=== PATIENT | female | born 1960 | race Caucasian/White ===

== ENCOUNTER → 2016-07-27 | Outpatient (CLI) | payer BC ==
[2014-12-10 11:00] VITALS: BP 150/107
[~2016-07-27] MED LIST: ALPR0.5T6 PO; ALPR1TAB6 PO; AMIT1TAB PO; ATOR40TA59 PO; BUPR100T6 PO; CITA40TA5 PO; FLUO40CA9 PO; LEVO88TA4 PO; METO25TA2 PO; ZALE10CA PO
--- NOTE | 2016-07-27 16:52 | RAD ---
EXAM: ABDOMINAL ULTRASOUND. HISTORY: Epigastric pain. COMPARISON: None. FINDINGS: Sonographic evaluation of the abdomen was performed. Hyperechogenicity of the hepatic parenchyma is consistent with diffuse hepatic steatosis. This lowers sensitivity for focal lesions. None are seen. The spleen measures cm. Gallstones are noted. There is no pericholecystic fluid or wall thickening. There is no sonographic Mckeon sign. The common duct measures 3 mm. The visualized portions of the head and body of the pancreas reveal no abnormality. The right kidney measures 10.0 cm. Cortical thickness and echogenicity are preserved. There is no hydronephrosis. The left kidney measures 10.9 cm. Cortical thickness and echogenicity are preserved. There is no hydronephrosis. The visualized portions of the abdominal aorta and inferior vena cava are grossly patent and normal in caliber. IMPRESSION: 1. Mild diffuse hepatic steatosis. 2. Cholelithiasis without sonographic evidence of acute cholecystitis.
== END | disposition home or self-care (01) ==
LOC: US 16:15
PROVIDERS: ATTEND Family Medicine
DX: R10.13 Epigastric pain (principal); K76.0 Fatty (change of) liver, not elsewhere classified
CPT/HCPCS: 76700

== ENCOUNTER 2016-08-18 09:47 | Day surgery (SDC) | payer BC ==
[~2016-08-18] VITALS: Ht 157.5 cm; Wt 84.4 kg
[~2016-08-18 09:47] MED LIST changes: +BUPIVAC MPF-EPI 0.5%-1:200000 30 ML VIAL. ONE; +BYSTOLIC5 MG PO; +CEFAZOLIN 2GM PREMIX 50 ML IV PRN; +DIAZEPAM10 MG PO; +DICL100G7 TP; +FENTANYL PF 100 MCG/2 ML VIAL. IV PRN; +IOHEXOL 300 MG/ML 50 ML VIAL. ONE; +IV RINGERS,LACTATED 1000ML 1,000 ML IV SCH; +LAMO25TA PO; +LIDOCAINE 1% 1 ML SYRINGE. ID PRN; +ONDANSETRON PF 4 MG/2 ML VIAL. IV PRN; +OXYC5TAB PO; +PROCHLORPERAZINE 10 MG/2 ML VIAL. IV PRN; +SURGICEL HEMOSTAT 4X8 EACH. ONE; +VENL150C PO
[2016-08-18] MEDS ORDERED: GLYCOPYRROLATE 1 MG/5 ML VIAL. ONE (10:14)
[2016-08-18] MEDS ORDERED: NEOSTIGMINE METHYLSULFATE 5 MG/5 ML SYRINGE. ONE (10:14)
[2016-08-18] MEDS ORDERED: ROCURONIUM 50 MG/5 ML VIAL. ONE (10:14)
[2016-08-18] MEDS ORDERED: SEVOFLURANE 61 TO 120 MINUTES. IH ONE ×2 (10:14→12:28)
[2016-08-18] MEDS ORDERED: FENTANYL PF 100 MCG/2 ML VIAL. ONE (10:14)
[2016-08-18] MEDS ORDERED: MIDAZOLAM HCL 2 MG/2 ML VIAL. ONE (10:14)
[2016-08-18] MEDS ORDERED: ONDANSETRON PF 4 MG/2 ML VIAL. ONE (10:15)
[2016-08-18] MEDS ORDERED: PROPOFOL 20 ML IV ONE (10:15)
[2016-08-18] MEDS ORDERED: LIDOCAINE 2% 100 MG/5 ML DISP.SYRIN. ONE (10:15)
[2016-08-18] MEDS ORDERED: DEXAMETHASONE SOD PHOS 20 MG/5 ML VIAL. ONE (10:15)
[2016-08-18] MEDS ORDERED: KETOROLAC 30 MG/ML SYRINGE FOR OR. INJ ONE (10:18)
[2016-08-18] MEDS ORDERED: SURGICEL HEMOSTAT 4X8 EACH. ONE (11:13)
[2016-08-18] MEDS ORDERED: IOHEXOL 300 MG/ML 50 ML VIAL. ONE (11:14)
[2016-08-18] MEDS ORDERED: BUPIVAC MPF-EPI 0.5%-1:200000 30 ML VIAL. ONE (11:14)
[2016-08-18] MEDS ORDERED: EPHEDRINE SULFATE 50 MG/ML VIAL. ONE (11:58)
--- NOTE | 2016-08-18 12:18 | RAD ---
Intraoperative cholangiogram, 2 views, 08/18/2016: History: Cholecystectomy Contrast has been injected into the cystic duct remnant. 0.1 minutes of fluoroscopy time was utilized. There is good flow of contrast into the duodenum at the ampulla. No filling defect is seen in the common duct to suggest a retained stone. There is reflux of contrast into a portion of the distal pancreatic duct. The incompletely visualized intrahepatic ducts are unremarkable. No contrast extravasation is seen. IMPRESSION: No significant abnormality is detected.
[2016-08-18] MEDS ORDERED: OXYC-323 PO (12:32)
[2016-08-18] MEDS ORDERED: ONDA4TAB7 PO (12:32)
--- NOTE | 2016-08-18 12:34 | PDOC ---
BRIEF OPERATIVE NOTE Pre-Op Diagnosis cholelithiasis lap ora, ioc k joselin caballero ebl 10 ivf 1000 eugene well to rr stable. LAURE BOYD MD Aug 18, 2016 12:34
[2016-08-18] MEDS ORDERED: METOCLOPRAMIDE HCL 10 MG/2 ML VIAL. ONE (12:35)
[2016-08-18] MEDS: FENTANYL PF 100 MCG/2 ML VIAL. IV PRN ×3 (12:52→13:10)
[2016-08-18] MEDS: MORPHINE SULFATE 2 MG/ML DISP.SYRIN. IV PRN ×2 (13:50→14:00)
[2016-08-18] MEDS ORDERED: OXYCODONE/APAP 5/325 TABLET. PO ONE (14:00)
[2016-08-18 14:19] VITALS: BP 122/57
--- NOTE | 2016-08-19 14:40 | PATHOLOGY ---
PATHOLOGY REPORT * * * * * * * * FINAL DIAGNOSIS: Gallbladder, laparoscopic cholecystectomy: - Cholelithiasis. - Chronic cholecystitis. COMMENT: There is no evidence of malignancy. (GINAM:; d/t: 08/19/16) REPORT ELECTRONICALLY SIGNED BY: Thaddeus Yancey M.D. DATE/TIME: 08/19/2016 14:39 * * * * * * * * GROSS PATHOLOGY: Received in formalin labeled "Kia Gomez, gallbladder and contents," is an 11.2 x 3.7 x 3.0 cm, intact gallbladder with pink-rivas to purple serosal surfaces. Opening the gallbladder reveals a velvety, bile-stained mucosa and an average wall thickness of 0.1 cm. Calculi are present displaying a bright yellow and nodular appearance, and no masses are noted grossly. Manufacturing [employer] Titles sections from the body and fundus are submitted along with the proximal margin in cassette A1. (CAA; 08/18/2016) INITIAL CPT CODE(S): A; 34887 Professional services performed by [facility] [place] [address] Technical services performed by [facility] at [address] [place] [address] [address] [address]. SPECIMEN(S) RECEIVED: A.Gallbladder and contents CLINICAL HISTORY: Cholelithiasis PATIENT: KIA GOMEZ /AGE: 801/26/1960 (Age: 56) PATIENT #: [id number] ALT CASE #: SPECIMEN COLLECTION DATE: 08/18/2016 SPECIMEN RECEIVED DATE: 08/18/2016 [facility] - [address] [place] [address] - PHONE: [phone] * * * END OF REPORT * * *
--- NOTE | 2016-08-19 21:04 | OP ---
DATE OF SURGERY: 08/18/2016 PREOPERATIVE DIAGNOSIS: Symptomatic cholelithiasis. POSTOPERATIVE DIAGNOSIS: Symptomatic cholelithiasis. PROCEDURE: Laparoscopic cholecystectomy with intraoperative cholangiogram. SURGEON: Laure Boyd M.D. ANESTHESIA: General. ESTIMATED BLOOD LOSS: 10 mL. IV FLUIDS: 1000 mL. INDICATIONS: The patient is a 56-year-old female with symptomatic cholelithiasis. DESCRIPTION OF PROCEDURE: After informed consent was obtained, the patient was taken to the operating room and placed in the supine position. After adequate induction of general anesthesia, she was prepped and draped in the usual sterile fashion. An umbilical skin incision was made with a scalpel, and subcutaneous tissue was spread with a hemostat. [facility] was used to grab the fascia and lift it anteriorly. Veress was used to gain access to the peritoneal cavity. Low opening pressures confirmed intraperitoneal placement of Veress. Pneumoperitoneum to 15 mmHg was established followed by placement of 5 mm port. A 5 mm 30 degree lens was inserted, which revealed good port placement. No evidence of entry trauma. She was placed head up, rotated towards her left. Three additional ports were placed under direct vision, one was an epigastric 12 mm port and two were 5 mm right lateral ports. The patient had had some right lower quadrant pain and bulging that she was concerned may be an incisional hernia. She has had a previous paramedian lower abdominal incision for appendectomy. This area was inspected laparoscopically. The fascia appeared intact. There was no evidence of adhesive disease to the anterior abdominal wall and there was no evidence of an incisional hernia. At this point, cholecystectomy was performed. The gallbladder was grasped fundus, lifted over the liver and slightly towards the right. The infundibulum was retracted towards the right and towards her toes to open triangle of Calot. The leading peritoneal edge was scored with cautery medially and laterally and carried back towards the liver. [place] dissector was used to dissect out the triangle of Calot. At the completion of the dissection, two structures were seen leading directly to the gallbladder, one was a cystic artery, one was a cystic duct. The liver could be seen behind the gallbladder. The gallbladder dissected away from the cystic plate. Two clips were placed on the cystic artery proximally, one distally and the artery divided sharply. A clip was placed in the cystic duct adjacent to the gallbladder. Ductotomy was made with scissors. Intraoperative cholangiogram showed free flow of contrast. The cystic duct, common bile duct, common hepatic duct, left and right hepatic duct, intrahepatic radicles, free flow of contrast into the duodenum with no filling defects. The cholangiogram was interpreted as normal and completed. The catheter was removed. Three clips were placed on the cystic duct, distal ductotomy. Ductotomy completed with scissors. Gallbladder was removed from the bed of the liver with cautery. It was placed in a laparoscopic bag and brought out through the epigastric incision. Right upper quadrant was irrigated. The irrigant returned clear. There was no bleeding or bile leakage noted. Fascial closure device was used to close the fascia at the epigastric incision using 0 Vicryl suture. The ports were removed under direct vision. They were hemostatic. Pneumoperitoneum was desufflated. Skin incisions were closed with 4-0 Monocryl in subcuticular fashion. Sterile dressings were placed. She tolerated the procedure well. There were no apparent complications. She was transferred in stable condition to the recovery room. LAURE BOYD MD DR: EVELYN/yandel JOB#: [id number] / [id number] DIANNE Gale MD
== END 2016-08-18 14:30 | disposition home or self-care (01) ==
LOC: SURG 09:47
PROVIDERS: ATTEND Surgery
DX: K80.10 Calculus of gallbladder with chronic cholecystitis without obstruction (principal); R56.9 Unspecified convulsions; E78.00 Pure hypercholesterolemia, unspecified; I10 Essential (primary) hypertension; K21.9 Gastro-esophageal reflux disease without esophagitis; M81.0 Age-related osteoporosis without current pathological fracture; E03.9 Hypothyroidism, unspecified; F41.0 Panic disorder [episodic paroxysmal anxiety]; F41.9 Anxiety disorder, unspecified; F32.9 Major depressive disorder, single episode, unspecified; F10.99 Alcohol use, unspecified with unspecified alcohol-induced disorder; F17.200 Nicotine dependence, unspecified, uncomplicated; Z90.49 Acquired absence of other specified parts of digestive tract; Z98.51 Tubal ligation status; Z90.710 Acquired absence of both cervix and uterus; Z90.721 Acquired absence of ovaries, unilateral
CPT/HCPCS: 47563; 74300; C1782; J0690; J0780; J1100; J1885; J2250; J2270; J2405; J2704; J2710; J2765; J3010; J3490; J7030; J7120; Q9967; 88304; J2001

== ENCOUNTER → 2017-03-29 | Outpatient (CLI) | payer BC ==
[~2017-03-29] MED LIST changes: -BUPIVAC MPF-EPI 0.5%-1:200000 30 ML VIAL. ONE; -CEFAZOLIN 2GM PREMIX 50 ML IV PRN; +CYCL10TA2 PO; +DICL100G18 TP; -DICL100G7 TP; +ESZO3TAB28 PO; -FENTANYL PF 100 MCG/2 ML VIAL. IV PRN; +IOHEXOL 180 MG/ML 10 ML VIAL. ONE; -IOHEXOL 300 MG/ML 50 ML VIAL. ONE; -IV RINGERS,LACTATED 1000ML 1,000 ML IV SCH; +LAMO25TA5 PO; +LEVO25TA4 PO; -LIDOCAINE 1% 1 ML SYRINGE. ID PRN; +ONDA4TAB7 PO; -ONDANSETRON PF 4 MG/2 ML VIAL. IV PRN; +OXYC-323 PO; -OXYC5TAB PO; +OXYC5TAB95 PO; -PROCHLORPERAZINE 10 MG/2 ML VIAL. IV PRN; -SURGICEL HEMOSTAT 4X8 EACH. ONE; +VENL225T PO; +methylPREDNISolone ACETATE 40 MG/ML VIAL. ONE; +methylPREDNISolone ACETATE 80 MG/ML VIAL. ONE
--- NOTE | 2017-03-29 18:52 | PAIN ---
DATE OF SERVICE: 03/29/2017 INITIAL CONSULTATION FOR PAIN CLINIC CHIEF COMPLAINT: Low back and left lower extremity pain. HISTORY OF PRESENT ILLNESS: This is a 57-year-old female who presents with history of pain in the low back and left lower extremity for about 5 months or so. Now, the patient reports it increased without any specific injury or action that she is aware of, but gradually getting worse. She reports she has fallen a few times during this summer because her left leg was feeling weak and she reports pain radiating from the low back in the left posterior gluteus, posterior lateral thigh, posterior calf into the foot causing her to stumble when it is at its worst. The patient reports it is throbbing, sometimes stabbing, radiating, intermittent in intensity and aching. Reports it awakens her from sleep about once or twice a night if she lays on the left side, also has some difficulty with walking. No loss of bowel incontinence, but the patient reports it is hard to start when she is urinating, which is worse when the pain is at its worst. The patient reports no loss of bowel function. The patient did have an MRI scan of the lumbar spine showing a broad-based disk bulge at L5-S1 extending into the spinal canal approximately 2.5 mm with bilateral facet degenerative changes and spinal lipomatosis also noted. The patient noted thecal sac circumferentially with neural foraminal stenosis on the left with patency on the right. L4-L5 shows broad based annular bulge effacing the thecal sac approximately 1 mm, but without significant stenosis at that level. The patient reports worse with walking, standing, change in positions, better with lying down, but again lying on the left side is waking her from sleep frequently. She has tried some chiropractic treatment, which helped in early 2014, but not had any since and has been doing some stretching on her own and walking daily, but it is beginning to inhibit her ability to walk because of the pain. The patient reports she has tried Flexeril, which helped to some extent and Aleve helps better than Tylenol, she has tried both. PAST MEDICAL HISTORY: Significant for hypertension, difficulty urinating, arthritis, cataracts, cigarette smoking half pack a day for the past 40 years, continues to smoke. PREVIOUS SURGERIES: Include hysterectomy, tubal ligation, cholecystectomy, appendectomy and tonsillectomy. The patient rates her disability rating from 0 to 10, 10 being the worst, is an 8 with family and home responsibilities, recreation and social activity, 10 with occupation, 6 with sexual behavior, 5 with self care and 2 with life support activities. CURRENT MEDICATIONS: Include diazepam, Bystolic, venlafaxine, Lunesta, cyclobenzaprine, Lamictal and levothyroxine. ALLERGIES: THE PATIENT IS ALLERGIC TO CODEINE. FAMILY HISTORY: Significant for no major medical problems or conditions that she is aware of. SOCIAL HISTORY: The patient continues to smoke about half a pack of cigarettes per day and has for the past 40 years. Does not drink alcohol, use any other illegal illicit drugs or other substances and lives locally in [place], [place]. REVIEW OF SYSTEMS: The patient's review of systems is positive for those items mentioned in history of present illness. All systems reviewed and otherwise negative. It is complete, full and well documented on the patient's chart. PHYSICAL EXAMINATION: VITAL SIGNS: Today, the patient's blood pressure is 141/87, pulse 75, respirations 18, temperature 98.2 degrees Fahrenheit, height is 5 feet 2 inches, weight is 186 pounds. GENERAL: The patient is awake, alert, oriented, appropriate, very pleasant demeanor. HEENT: Head shows normocephalic, atraumatic. Extraocular movements are intact and symmetrical. Oral cavity, mucous membranes are moist and pink. Dentition is intact. NECK: Shows anterior throat supple without palpable lymphadenopathy noted. Swallow reflex is symmetrical. CHEST: Shows normal on inspection. Breath sounds are clear to auscultation bilaterally. HEART: Shows S1 and S2 clear. No murmurs auscultated. ABDOMEN: Soft, nontender, nondistended. No palpable organomegaly. There is no rebound or guarding demonstrated. BACK: Shows spine grossly in the midline. No previous bruises, lesions, rashes or scars are noted. Normal appearing cervical lordotic curvature, thoracic kyphotic curvature, and lumbar lordotic curvature. Lumbar paraspinous muscle shows symmetrical on inspection, with palpation shows only some very mild tenderness with palpation in the lower lumbar distribution of the left side only. Right side is nontender with palpation. No radiation of pain. No trigger points. No tenderness over the spinous processes, sacrum or sacroiliac regions with palpation. The patient shows good rotational motion both laterally, greater than 10 degrees right and left as well as extension greater than 10 degrees, forward flexion at 45 degrees without significant pain reported. EXTREMITIES: Lower extremities show deep tendon reflexes 2+ in the patellar, 1+ tendo-calcaneus tendons, are equal. Motor exam is approximately 4 on a scale of 5 with left dorsiflexion, extension, quadriceps and hamstring flexion is 5/5 on the right, slightly stronger on the right side. Peripheral pulses are 1+ posterior tibial and dorsalis pedis pulses. No peripheral edema is noted. No clubbing, no cyanosis. Lower extremities are warm and dry to touch, equal in color and appearance. The patient is able to stand, stand on her toes without difficulty or loss of balance, is walking with a normal-appearing gait, does not appear to favor the right or left lower extremity significantly with a short walk, not use any assistive devices to ambulate as well. IMPRESSION: 1. This is a 57-year-old female with approximate 5-month history of increasing pain in low back and left lower extremity in a radicular fashion. 2. MRI scan of lumbar spine as noted. 3. Hypertension. 4. Cigarette smoking. 5. Arthritis. PLAN: Options were discussed with the patient including conservative medical management, physical therapy and interventional techniques. She would like to pursue interventional techniques. We discussed a lumbar epidural steroid injection using description as well as anatomical models to describe the procedure. Risks were then discussed including, but not limited to bleeding, infection, possibility of epidural hematoma, subsequent neurologic compromise, dural puncture, headaches, spinal cord and/or nerve damage, side effects of steroid medication and poor results regarding pain control. The patient understands and wishes to proceed. The patient will return to clinic in approximately 2 weeks for followup, was counseled on return appointment, activity level and side effects to be aware of. DIAGNOSES: Lumbar radiculopathy with lumbar spinal stenosis and lumbar degenerative disk disease. PROCEDURE: Lumbar epidural steroid injection in translaminar approach at the L5-S1 level using C-arm fluoroscopic guidance under sterile prep and drape using local anesthetic. MEDICATIONS INJECTED: A total of 120 mg Depo-Medrol plus 10 mL of preservative-free normal saline, 2 mL Isovue for contrast. CONDITION AT DISCHARGE: Stable. The patient tolerated procedure well, had no complications. LAMBERTO CUTLER MD DR: BERNARD/yadnel JOB#: [id number] / [id number] DIANNE Gale MD
== END | disposition home or self-care (01) ==
LOC: PNCL 10:04
PROVIDERS: ATTEND Anesthesiology
DX: M51.16 Intervertebral disc disorders with radiculopathy, lumbar region (principal); M48.061 Spinal stenosis, lumbar region without neurogenic claudication; I10 Essential (primary) hypertension; F17.200 Nicotine dependence, unspecified, uncomplicated; M19.91 Primary osteoarthritis, unspecified site; E78.00 Pure hypercholesterolemia, unspecified; E03.9 Hypothyroidism, unspecified; F41.9 Anxiety disorder, unspecified; F32.9 Major depressive disorder, single episode, unspecified; Z72.89 Other problems related to lifestyle; Z86.69 Personal history of other diseases of the nervous system and sense organs; Z98.890 Other specified postprocedural states; Z98.51 Tubal ligation status; Z90.710 Acquired absence of both cervix and uterus; Z87.39 Personal history of other diseases of the musculoskeletal system and connective tissue; Z87.440 Personal history of urinary (tract) infections; Z88.6 Allergy status to analgesic agent
CPT/HCPCS: 62323; J1030; J1040

== ENCOUNTER → 2017-05-03 | Outpatient (CLI) | payer BC ==
[~2017-05-03] MED LIST changes: +VENL150T PO
--- NOTE | 2017-05-04 02:40 | PAIN ---
DATE OF SERVICE: 05/03/2017 DIAGNOSES: Lumbar radiculopathy with lumbar degenerative disk disease, lumbar spinal stenosis. HISTORY OF PRESENT ILLNESS: The patient is a 57-year-old female, who returns for followup status post lumbar epidural steroid injection x 1. The patient reports about 80% improvement initially and now only about 20% improvement. Over the last week or two, the pain is beginning to return in her low back and left lower extremity, radiating to the posterior gluteus, posterior thigh, posterior calf into the foot on the left side only. The patient reports aching, cramping and becoming more constant and somewhat dull and unbearable. The patient reports it is 8 on a scale of 10 is worse, 7 on average, 5 on a scale of 10 is the least and is a 5 today. The patient reports no new motor or sensory deficits, no new bowel or bladder incontinence or other complaints. The patient reports worse with standing, walking, change in positions, better with sitting or lying down, awakens her from sleep occasionally, but she usually sleeps about 7 hours at a time. She ____ reposition and get back to sleep without difficulty. PHYSICAL EXAMINATION: VITAL SIGNS: Today, the patient's blood pressure is 113/66, pulse 64, respirations are 18, temperature 97.7 degrees Fahrenheit. Height 5 feet 2 inches, weighs 189 pounds. GENERAL: The patient is awake, alert, oriented, appropriate, very pleasant demeanor. HEENT: Head shows normocephalic, atraumatic. Extraocular movements are intact, symmetrical. Oral cavity: Mucous membranes moist and pink. Dentition is intact. NECK: Shows anterior throat supple without palpable lymphadenopathy noted. Swallow reflex is symmetrical. CHEST: Shows normal with inspection. Breath sounds clear to auscultation bilaterally. HEART: Shows S1, S2 clear. ABDOMEN: Soft, nontender, nondistended. No palpable organomegaly. No rebound or guarding demonstrated. BACK: Shows spine grossly midline. Lumbar paraspinous muscle shows symmetrical on inspection with palpation shows some moderate tenderness in the middle and lower distribution of paraspinous muscles, but without radiation. The patient has good rotational motion both laterally as well as extension and flexion of lumbar spine without significant pain reported. EXTREMITIES: Lower extremities show deep tendon reflexes 2+ in the patellar, 1+ tendo-calcaneus tendons are equal. Motor exam is approximately 4 on a scale 5 with left dorsiflexion, extension, 5/5 on the right. Peripheral pulses are 1+ posterior tibial. No peripheral edema is noted bilaterally. Options were discussed with the patient. The patient's old chart was reviewed as her current medication regimen updated. Current review of systems updated today as well. We will proceed with a lumbar epidural steroid injection, the second in this series with fluoroscopic guidance. Risks were again discussed including, but not limited to bleeding, infection, possibility of epidural hematoma, subsequent neurologic compromise, dural puncture, headaches, spinal cord and/or nerve damage, side effects of steroid medication and poor results regarding pain control. The patient understands and wished to proceed. The patient will return to clinic in approximately 2 weeks for followup. She was counseled to return appointment, activity level and side effects to be aware of. DIAGNOSIS: Lumbar radiculopathy with lumbar degenerative disk disease, lumbar spinal stenosis. PROCEDURE: Lumbar epidural steroid injection, translaminar approach at the L5-S1 level using C-arm fluoroscopic guidance under sterile prep and drape using local anesthetic. Medications injected a total of 120 mg Depo-Medrol plus 10 mL of preservative-free normal saline and 2 mL of Isovue for contrast. CONDITION AT DISCHARGE: Stable. The patient tolerated procedure well, had no complications. LAMBERTO CUTLER MD DR: BERNARD/yandel JOB#: [id number] / [id number]
== END ==
LOC: PNCL 08:15
PROVIDERS: ATTEND Anesthesiology
DX: M51.16 Intervertebral disc disorders with radiculopathy, lumbar region (principal); M48.061 Spinal stenosis, lumbar region without neurogenic claudication; E78.00 Pure hypercholesterolemia, unspecified; I10 Essential (primary) hypertension; K21.9 Gastro-esophageal reflux disease without esophagitis; M81.0 Age-related osteoporosis without current pathological fracture; E03.9 Hypothyroidism, unspecified; F32.9 Major depressive disorder, single episode, unspecified; F41.9 Anxiety disorder, unspecified; F17.200 Nicotine dependence, unspecified, uncomplicated; Z82.49 Family history of ischemic heart disease and other diseases of the circulatory system; Z98.51 Tubal ligation status; Z90.710 Acquired absence of both cervix and uterus; Z90.721 Acquired absence of ovaries, unilateral; Z87.440 Personal history of urinary (tract) infections; Z98.890 Other specified postprocedural states
CPT/HCPCS: 62323; J1030; J1040

== ENCOUNTER → 2017-11-22 | Outpatient (CLI) | payer BC ==
[~2017-11-22] MED LIST changes: -ALPR0.5T6 PO; -ALPR1TAB6 PO; -AMIT1TAB PO; -ATOR40TA59 PO; -BUPR100T6 PO; -BYSTOLIC5 MG PO; -CITA40TA5 PO; -CYCL10TA2 PO; -DIAZEPAM10 MG PO; -DICL100G18 TP; -ESZO3TAB28 PO; -FLUO40CA9 PO; +IOHEXOL 180 MG/ML 10 ML VIAL.; -IOHEXOL 180 MG/ML 10 ML VIAL. ONE; -LAMO25TA PO; -LAMO25TA5 PO; -LEVO25TA4 PO; -LEVO88TA4 PO; +LIDOCAINE 1% PF 2 ML VIAL.; -METO25TA2 PO; -ONDA4TAB7 PO; -OXYC-323 PO; -OXYC5TAB95 PO; -VENL150C PO; -VENL150T PO; -VENL225T PO; -ZALE10CA PO; +methylPREDNISolone ACETATE 40 MG/ML VIAL.; -methylPREDNISolone ACETATE 40 MG/ML VIAL. ONE; +methylPREDNISolone ACETATE 80 MG/ML VIAL.; -methylPREDNISolone ACETATE 80 MG/ML VIAL. ONE
== END | disposition home or self-care (01) ==
LOC: PNCL 14:10
DX: M51.16 Intervertebral disc disorders with radiculopathy, lumbar region (principal); M48.061 Spinal stenosis, lumbar region without neurogenic claudication; E78.00 Pure hypercholesterolemia, unspecified; I10 Essential (primary) hypertension; K21.9 Gastro-esophageal reflux disease without esophagitis; N39.0 Urinary tract infection, site not specified; M81.0 Age-related osteoporosis without current pathological fracture; F41.0 Panic disorder [episodic paroxysmal anxiety]; F32.9 Major depressive disorder, single episode, unspecified; F17.210 Nicotine dependence, cigarettes, uncomplicated; Z88.5 Allergy status to narcotic agent; Z90.49 Acquired absence of other specified parts of digestive tract; Z98.51 Tubal ligation status; Z90.710 Acquired absence of both cervix and uterus; Z90.721 Acquired absence of ovaries, unilateral
CPT/HCPCS: 62323; J1030; J1040; Q9965

== ENCOUNTER 2018-01-22 05:40 | Emergency (ER) | payer BC ==
[~2018-01-22] VITALS: Ht 157.5 cm; Wt 77.1 kg
[~2018-01-22 05:40] MED LIST changes: +ALPR0.5T6 PO; +ALPR1TAB6 PO; +AMIT1TAB PO; +ARIP5TAB13 PO; +ATOR40TA59 PO; +BUPR100T6 PO; +BYSTOLIC5 MG PO; +CITA40TA5 PO; +CYCL10TA2 PO; +DIAZEPAM10 MG PO; +DICL100G18 TP; +ESZO3TAB28 PO; +FLUO40CA9 PO; -IOHEXOL 180 MG/ML 10 ML VIAL.; +LAMO25TA PO; +LAMO25TA5 PO; +LEVO25TA4 PO; +LEVO88TA4 PO; -LIDOCAINE 1% PF 2 ML VIAL.; +METO25TA2 PO; +ONDA4TAB7 PO; +OXYC-323 PO; +OXYC5TAB95 PO; +VENL150C PO; +VENL150T PO; +VENL225T PO; +ZALE10CA PO; -methylPREDNISolone ACETATE 40 MG/ML VIAL.; -methylPREDNISolone ACETATE 80 MG/ML VIAL.
--- NOTE | 2018-01-22 06:05 | PHYS DOC ---
Past Medical History Past Medical History: Anxiety, Depression, Hypertension, Other Additional Past Medical Histor: panic attacks Past Surgical History: Cholecystectomy Alcohol Use: Rarely Drug Use: None Adult General Chief Complaint Chief Complaint: ABDOMINAL PAIN HPI HPI Patient is a 57 year old female who presents with abdominal pain. Patient c/o LLQ pain over the last 3 days. Pain has been constant and worsening. Patient is one year s/p cholecystectomy. She also had appendectomy as a child. No fever or chills. + nausea but no emesis. She does report some difficulty with having bowel movements with last normal BM being four days earlier. She has had some "pebble" like stools but no large BMs. No diarrhea. Denies urinary symptoms. Review of Systems Review of Systems Constitutional: Denies fever Eyes: Denies change in visual acuity HENT: Denies nasal congestion Respiratory: Denies cough or shortness of breath Cardiovascular: No additional information GI: Denies abdominal pain, nausea, vomiting : Denies dysuria or hematuria Musculoskeletal: Denies back pain Integument: Denies rash or skin lesions Neurologic: Denies headache Endocrine: Denies polyuria All other systems were reviewed and found to be within normal limits, except as documented in this note. Current Medications Current Medications Current Medications Medications (Trade) Dose Ordered Sig/Lit Start Time Stop Time Status Last Admin Dose Admin Info (CONTRAST GIVEN -- Rx MONITORING) 1 each PRN DAILY PRN 01/22/18 06:15 01/24/18 06:14 Iohexol (Omnipaque 300 Mg/ml) 75 ml 1X ONCE 01/22/18 06:30 01/22/18 06:31 DC Morphine Sulfate (Morphine Sulfate) 6 mg 1X ONCE 01/22/18 06:30 01/22/18 06:31 DC 01/22/18 06:22 6 MG Ondansetron HCl (Zofran) 4 mg 1X ONCE 01/22/18 06:30 01/22/18 06:31 DC 01/22/18 06:23 4 MG Sodium Chloride 1,000 ml @ 1,000 mls/hr 1X ONCE 01/22/18 07:00 01/22/18 07:59 DC 01/22/18 07:09 1,000 MLS/HR Allergies Allergies Allergies Coded Allergies Type Severity Reaction Last Updated Verified codeine Allergy Intermediate Rash 03/29/17 Yes Physical Exam Physical Exam Constitutional: Well developed, well nourished, no acute distress, non-toxic appearance HENT: Normocephalic, atraumatic, bilateral external ears normal, oropharynx moist Eyes: PERRLA, EOMI, conjunctiva normal Neck: Normal range of motion Cardiovascular:Heart rate regular rhythm, no murmur Lungs & Thorax: Bilateral breath sounds clear to auscultation Abdomen: Bowel sounds normal, soft, mildly TTP over LLQ but no guarding or rebound Skin: Warm, dry, no erythema Extremities: No edema Neurologic: Alert and oriented X 3 Psychologic: Affect normal Current Patient Data Vital Signs Vital Signs Date Time Temp Pulse Resp B/P (MAP) Pulse Ox O2 Delivery O2 Flow Rate FiO2 01/22/18 07:00 66 18 157/105 (122) 96 Room Air 01/22/18 05:50 98.2 98.2 Lab Values Laboratory Tests Test 01/22/18 05:55 01/22/18 07:55 White Blood Count 8.9 x10^3/uL (4.0-11.0) Red Blood Count 4.89 x10^6/uL (3.50-5.40) Hemoglobin 15.7 g/dL (12.0-15.5) H Hematocrit 45.3 % (36.0-47.0) Mean Corpuscular Volume 93 fL (79-100) Mean Corpuscular Hemoglobin 32 pg (25-35) Mean Corpuscular Hemoglobin Concent 35 g/dL (31-37) Red Cell Distribution Width 14.1 % (11.5-14.5) Platelet Count 309 x10^3/uL (140-400) Neutrophils (%) (Auto) 55 % (31-73) Lymphocytes (%) (Auto) 36 % (24-48) Monocytes (%) (Auto) 8 % (0-9) Eosinophils (%) (Auto) 0 % (0-3) Basophils (%) (Auto) 1 % (0-3) Neutrophils # (Auto) 4.9 x10^3uL (1.8-7.7) Lymphocytes # (Auto) 3.2 x10^3/uL (1.0-4.8) Monocytes # (Auto) 0.7 x10^3/uL (0.0-1.1) Eosinophils # (Auto) 0.0 x10^3/uL (0.0-0.7) Basophils # (Auto) 0.1 x10^3/uL (0.0-0.2) Sodium Level 140 mmol/L (136-145) Potassium Level 3.8 mmol/L (3.5-5.1) Chloride Level 103 mmol/L (98-107) Carbon Dioxide Level 29 mmol/L (21-32) Anion Gap 8 (6-14) Blood Urea Nitrogen 8 mg/dL (7-20) Creatinine 0.8 mg/dL (0.6-1.0) Estimated GFR (Cockcroft-Gault) 74.2 Glucose Level 103 mg/dL (70-99) H Calcium Level 8.9 mg/dL (8.5-10.1) Total Bilirubin 0.4 mg/dL (0.2-1.0) Direct Bilirubin 0.1 mg/dL (0.0-0.2) Aspartate Amino Transferase (AST) 19 U/L (15-37) Alanine Aminotransferase (ALT) 27 U/L (14-59) Alkaline Phosphatase 129 U/L (46-116) H Total Protein 7.0 g/dL (6.4-8.2) Albumin 3.4 g/dL (3.4-5.0) Lipase 121 U/L (73-393) Urine Collection Type Void Urine Color Yellow Urine Clarity Clear Urine pH 6.0 Urine Specific [place] >=1.030 Urine Protein Negative mg/dL (NEG-TRACE) Urine Glucose (UA) Negative mg/dL (NEG) Urine Ketones (Stick) Negative mg/dL (NEG) Urine Blood Negative (NEG) Urine Nitrite Negative (NEG) Urine Bilirubin Negative (NEG) Urine Urobilinogen Dipstick 0.2 mg/dL (0.2 mg/dL) Urine Leukocyte Esterase Negative (NEG) Urine RBC Occ /HPF (0-2) Urine WBC 1-4 /HPF (0-4) Urine Squamous Epithelial Cells Many /LPF Urine Bacteria Few /HPF (0-FEW) Urine Mucus Mod /LPF Laboratory Tests 01/22/18 05:55 Laboratory Tests 01/22/18 05:55 EKG EKG [] Radiology/Procedures Radiology/Procedures HISTORY: Left lower quadrant pain Multidetector CT imaging was performed following an IV bolus injection of iodinated contrast material. No oral contrast material was administered for this study. There is mild bibasilar atelectasis and/or scarring. The gallbladder is surgically absent. No hepatic abnormality is seen. The pancreas is unremarkable. The spleen is of normal size. No renal or adrenal abnormality is detected. There is moderate aortoiliac calcific plaquing. No abdominal or pelvic adenopathy is seen. The uterus appears to be surgically absent. There are scattered colonic diverticula, most numerous in the sigmoid region. No paracolonic inflammatory process is seen. The bowel loops are of normal caliber. The appendix is not visualized. No dilated appendix or pericecal inflammatory process is evident. No free fluid or free air is evident in the abdomen or pelvis. IMPRESSION: 1. Colonic diverticulosis. 2. No acute abdominal or pelvic abnormality is detected. Course & Med Decision Making Course & Med Decision Making Pertinent Labs and Imaging studies reviewed. (See chart for details) 05:55: Patient is seen and examined. Standard abd pain workup is ordered. Morphine for pain. 08:45: All results are reviewed and discussed with the patient. There are no acute findings to explain her pain. Suspect, based on her history of present illness, constipation. The patient does use pain medications at home. Her abdominal exam continues to be benign. Plan is for discharge home. She is placed on docusate sodium 1 capsule twice daily. She is also given MiraLAX and advised to use 2 or 3 times daily until she has loose stools, then 2 backoff on this medication. Patient will follow up with her primary care doctor or return to the ER for any new or worsening symptoms. Dragon Disclaimer Dragon Disclaimer This electronic medical record was generated, in whole or in part, using a voice recognition dictation system. Departure Departure Referrals: DIANNE ESPINOSA MD (PCP) Scripts Polyethylene Glycol 3350 (MIRALAX) 17 Gm Powd.pack 1 PACKET PO BID PRN for CONSTIPATION, #30 PACKET 3 Refills Prov: LAMBERTO CERVANTES DO 01/22/18 Docusate Sodium (DOCUSATE SODIUM) 100 Mg Capsule 1 CAP PO BID, #30 CAP Prov: LAMBERTO CERVANTES DO 01/22/18 LAMBERTO CERVANTES DO Jan 22, 2018 06:05
[2018-01-22 06:09] LABS: BASO # 0.1 x10^3/uL (0.0-0.2); BASO % 1 % (0-3); EOS % 0 % (0-3); HEMATOCRIT 45.3 % (36.0-47.0); HEMOGLOBIN 15.7 g/dL (12.0-15.5); LYMPH # 3.2 x10^3/uL (1.0-4.8); LYMPH % 36 % (24-48); MEAN CORPUSCULAR HEMOGLOBIN 32 pg (25-35); MEAN CORPUSCULAR HGB CONC 35 g/dL (31-37); MEAN CORPUSCULAR VOLUME 93 fL (79-100); MONO # 0.7 x10^3/uL (0.0-1.1); MONO % 8 % (0-9); NEUT # 4.9 x10^3uL (1.8-7.7); NEUT % 55 % (31-73); PLATELET COUNT 309 x10^3/uL (140-400); RED BLOOD COUNT 4.89 x10^6/uL (3.50-5.40); RED CELL DISTRIBUTION WIDTH 14.1 % (11.5-14.5); WHITE BLOOD COUNT 8.9 x10^3/uL (4.0-11.0)
[2018-01-22] MEDS ORDERED: CONTRAST GIVEN. MC PRN (06:15)
[2018-01-22 06:20] LABS: CALCIUM 8.9 mg/dL (8.5-10.1); CREATININE 0.8 mg/dL (0.6-1.0); GFR 74.2; POTASSIUM 3.8 mmol/L (3.5-5.1)
[2018-01-22 06:25] LABS: ALBUMIN 3.4 g/dL (3.4-5.0); DIRECT BILIRUBIN 0.1 mg/dL (0.0-0.2); TOTAL BILIRUBIN 0.4 mg/dL (0.2-1.0)
[2018-01-22] MEDS ORDERED: ONDANSETRON PF 4 MG/2 ML VIAL. IV ONE (06:30)
[2018-01-22] MEDS ORDERED: IOHEXOL 300 MG/ML 100ML VIAL. IV ONE (06:30)
[2018-01-22] MEDS ORDERED: MORPHINE SULFATE 4 MG/ML VIAL. IV ONE (06:30)
[2018-01-22] MEDS ORDERED: IV NORMAL SALINE 1000ML BAG 1,000 ML IV ONE (07:00)
--- NOTE | 2018-01-22 08:01 | RAD ---
CT of the abdomen and pelvis with contrast, 01/22/2018: HISTORY: Left lower quadrant pain Multidetector CT imaging was performed following an IV bolus injection of iodinated contrast material. No oral contrast material was administered for this study. There is mild bibasilar atelectasis and/or scarring. The gallbladder is surgically absent. No hepatic abnormality is seen. The pancreas is unremarkable. The spleen is of normal size. No renal or adrenal abnormality is detected. There is moderate aortoiliac calcific plaquing. No abdominal or pelvic adenopathy is seen. The uterus appears to be surgically absent. There are scattered colonic diverticula, most numerous in the sigmoid region. No paracolonic inflammatory process is seen. The bowel loops are of normal caliber. The appendix is not visualized. No dilated appendix or pericecal inflammatory process is evident. No free fluid or free air is evident in the abdomen or pelvis. IMPRESSION: 1. Colonic diverticulosis. 2. No acute abdominal or pelvic abnormality is detected. PQRS Compliance Statement: One or more of the following individualized dose reduction techniques were utilized for this examination: 1. Automated exposure control 2. Adjustment of the mA and/or kV according to patient size 3. Use of iterative reconstruction technique Electronically signed by: Anastacio Rodriguez MD (01/22/2018 7:57 AM) [facility]
[2018-01-22 08:18] LABS: BILIRUBIN,URINE NEGATIVE (NEG); CLARITY,URINE CLEAR; COLOR,URINE YELLOW; NITRITE,URINE NEGATIVE (NEG); PROTEIN,URINE NEGATIVE (NEG-TRACE); UROBILINOGEN,URINE 0.2 mg/dL (0.2 mg/dL)
[2018-01-22 08:29] LABS: SQUAMOUS EPITHELIAL CELL,UR MANY /LPF
[2018-01-22 08:30] LABS: BACTERIA,URINE FEW /HPF (0-FEW); RBC,URINE OCC /HPF (0-2)
[2018-01-22] MEDS ORDERED: DOCU100C28 PO (08:50)
[2018-01-22] MEDS ORDERED: POLY17PO29 PO (08:50)
[2018-01-22 08:55] VITALS: BP 130/70
== END 2018-01-22 09:20 | disposition home or self-care (01) ==
LOC: ER 05:40
DX: K57.30 Diverticulosis of large intestine without perforation or abscess without bleeding (principal); F41.9 Anxiety disorder, unspecified; F32.9 Major depressive disorder, single episode, unspecified; I10 Essential (primary) hypertension; Z90.49 Acquired absence of other specified parts of digestive tract; Z88.5 Allergy status to narcotic agent
CPT/HCPCS: 36415; 74177; 80048; 80076; 81001; 83690; 85025; 96374; 96375; 99285; J2270; J2405; J7030

== ENCOUNTER → 2018-08-29 | Day surgery (SDC) | payer BC, OTHER ==
[~2018-08-29] MED LIST changes: +ALBUTEROL SULFATE 2.5 MG/3 ML NEBU. NEB PRN; +DOCU100C28 PO; +EPINEPHrine 1 MG/ML VIAL INJ PRN; +IV RINGERS,LACTATED 1000ML 1,000 ML IV SCH; -LAMO25TA PO; +LAMO25TA9 PO; +LIDOCAINE 1% Multi-Dose 20 ML VIAL. INJ PRN; +LIDOCAINE 2% PF 5 ML VIAL. ONE; +LIDOCAINE 2% VISCOUS 100 ML BOTTLE. MM PRN; +LIDOCAINE 4% TOPICAL 50 ML SOLUTION. MM PRN; -OXYC-323 PO; +OXYC1TAB15 PO; +OXYC5TAB4 PO; -OXYC5TAB95 PO; +POLY17PO29 PO; +PROPOFOL 40 ML IV ONE
[2018-08-29 12:36] LABS: BASO # 0.1 x10^3/uL (0.0-0.2); BASO % 1 % (0-3); EOS % 0 % (0-3); HEMATOCRIT 48.6 % (36.0-47.0); HEMOGLOBIN 16.1 g/dL (12.0-15.5); LYMPH # 2.2 x10^3/uL (1.0-4.8); LYMPH % 26 % (24-48); MEAN CORPUSCULAR HEMOGLOBIN 32 pg (25-35); MEAN CORPUSCULAR HGB CONC 33 g/dL (31-37); MEAN CORPUSCULAR VOLUME 95 fL (79-100); MONO # 0.8 x10^3/uL (0.0-1.1); MONO % 9 % (0-9); NEUT # 5.3 x10^3uL (1.8-7.7); NEUT % 64 % (31-73); PLATELET COUNT 299 x10^3/uL (140-400); RED BLOOD COUNT 5.12 x10^6/uL (3.50-5.40); RED CELL DISTRIBUTION WIDTH 14.4 % (11.5-14.5); WHITE BLOOD COUNT 8.3 x10^3/uL (4.0-11.0)
[2018-08-29 12:45] LABS: PROTHROMBIN TIME PATIENT 12.1 SEC (11.7-14.0)
[2018-08-29 12:52] LABS: D-DIMER 0.44 ug/mlFEU (0.00-0.50)
[2018-08-29 14:00] VITALS: BP 134/86
--- NOTE | 2018-08-29 14:59 | OP ---
DATE OF SURGERY: 08/29/2018 Procedure: Diagnostic Bronchoscopy Indication: Persistent hemoptysis BRONCHOSCOPY REPORT The indications for the bronchoscopy and the potential risks were explained to the patient and she was agreeable. A diagnostic bronchoscopy was undertaken because of her persistent hemoptysis. A timeout procedure was performed prior to sedation. She had topical sedation to her nasal passages and by inhalation with lidocaine. Propofol was used to sedate the patient. Please refer to the nurse customer advisor notes for details of that. Her vital signs were monitored throughout the procedure. There were no significant adverse problems with vital signs. Adequate oxygenation and blood pressure were monitored and maintained throughout the procedure. The bronchoscope was entered through the right nasal passage. There was some minor trauma to the nalal passage with bleeding less than 5 mL from introducing the bronchoscope. The vocal cords were visualized. There were no abnormalities, and the vocal cords moved normally. The bronchoscope was advanced through the vocal cords. A total of 10 mL of 1% lidocaine was instilled into the airways through the procedure. The airways were inspected to the level of the segmental bronchi. There were no focal mucosal abnormalities that were seen. There was no active bleeding visualized. There were no purulent secretions coming from any of the airways. There was very easy collapsibility of all of the airways. Additionally, the airways were diffusely friable. There were no biopsies or brushings taken since there were no focal mucosal abnormalities. Saline was instilled into the left and subsequently the right mainstem bronchi. That was aspirated and the sample was sent to the lab for cytologic examination and also for routine bacterial culture and sensitivity. The patient awoke after the propofol was discontinued. Again, she had a minimal amount of bleeding from her nose that she had stopped. There were no adverse effects apparent. Diagnositic Impression: 1.No bleeding or source of bleeding seen. 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 The patient will follow up with me in the office on Monday. I did review the findings with her and her , but obviously I will review those again on Monday. GEOFF CARTY MD DR: GWEN/yandel JOB#: [id number] / [id number] MTDD
--- NOTE | 2018-08-30 15:07 | PATHOLOGY ---
Note [facility] Accession Number: [id number] TESTS RESULT FLAG UNITS REF RANGE LAB Clinician Provided Cytology Information No. of containers..01 Other (Miscellaneous) Source: BAL R / L LUNG MIXED DIAGNOSIS: BAL R / L LUNG MIXED NEGATIVE FOR MALIGNANT CELLS. BRONCHIAL EPITHELIAL CELLS, SQUAMOUS EPITHELIAL CELLS, PULMONARY MACROPHAGES, AND FEW INFLAMMATORY CELLS PRESENT. Signed out by: Thaddeus Yancey MD, Pathologist NPI- [id number] Performed by: Devi Ricci, [employer] ([facility]) Gross description: 01 30ML, PINK, CLOUDY /LCS FLAG LEGEND: L-Low Normal,H-High Normal,LL-Alert Low,HH-Alert High <-Panic Low,>-Panic High,A-Abnormal,AA-Critical Abnormal Performed at: [address] [place] [address] Toni Arriaga MD, [address] [facility] [address] [place] [address] Thaddeus Yancey MD, Specimen Comment: A courtesy copy of this report has been sent to Specimen Comment: [phone]. Specimen Comment: Report sent to Performed at: [address], [place], [place] [id number] MD Toni Arriaga MD Phone: [phone]
== END | disposition home or self-care (01) ==
LOC: SURG 11:41
PROVIDERS: ATTEND Internal Medicine Pulmonary Disease
DX: J98.09 Other diseases of bronchus, not elsewhere classified (principal); R04.2 Hemoptysis; Z88.5 Allergy status to narcotic agent; F32.9 Major depressive disorder, single episode, unspecified; F41.9 Anxiety disorder, unspecified; G47.33 Obstructive sleep apnea (adult) (pediatric); J44.9 Chronic obstructive pulmonary disease, unspecified; Z90.49 Acquired absence of other specified parts of digestive tract; Z90.710 Acquired absence of both cervix and uterus; Z83.6 Family history of other diseases of the respiratory system; F17.210 Nicotine dependence, cigarettes, uncomplicated; I10 Essential (primary) hypertension; E78.5 Hyperlipidemia, unspecified; Z90.722 Acquired absence of ovaries, bilateral; Z90.79 Acquired absence of other genital organ(s); Z72.89 Other problems related to lifestyle; Z98.890 Other specified postprocedural states
CPT/HCPCS: 31624; 36415; 85025; 85379; 85610; 87070; 87205; 88112; 94640; J0171; J2001; J2704; J7613; 31622